=== PATIENT | male | born 1985 | race Caucasian/White ===

== ENCOUNTER 2022-10-25 00:09 | Emergency (ER) | payer OTHER ==
[2022-10-25] MEDS ORDERED: Prochlorperazine 10 MG in Sodium Chloride 0.9% 50 ML IV ONE (00:29)
[2022-10-25] MEDS ORDERED: Ketorolac 30 MG/ML SDV IVPUSH ONE (00:29)
[2022-10-25] MEDS ORDERED: Acetaminophen 325 MG Tab PO ONE (00:29)
[2022-10-25] MEDS ORDERED: diphenhydrAMINE 50 MG/ML SDV IVPUSH ONE (00:30)
[2022-10-25] MEDS ORDERED: Lactated Ringers 1,000 ML IV SCH (00:30)
[2022-10-25] MEDS ORDERED: Dexamethasone 10 MG/ML SDV PO ONE (00:56)
== END 2022-10-25 01:36 | disposition home or self-care (01) ==
LOC: MW.ED 00:09
DX: R51.9 Headache, unspecified (principal)
CPT/HCPCS: 96365; 96375; 99283; A9270; J0780; J1200; J1885; J3490; J7120; J8540